=== PATIENT | male | born 1995 | race Caucasian/White ===

== ENCOUNTER 2018-04-19 22:40 | Emergency (ER) | payer BC ==
[2018-04-19] MEDS ORDERED: Ondansetron 4 MG/2 ML SDV IVPUSH ONE (22:53)
--- NOTE | 2018-04-19 22:54 | EDM.PDOC ---
ED HPI GENERAL MEDICAL PROBLEM - General Chief Complaint: Gastrointestinal Problem Stated Complaint: [facility] Time Seen by Provider: 04/19/18 22:48 Source of Information: Reports: Patient, EMS History Limitations: Reports: No Limitations - History of Present Illness INITIAL COMMENTS - FREE TEXT/NARRATIVE: 22-year-old male who is usually quite healthy presents the ED simply not feeling well. He was standing in the workplace and started to feel faint dizzy lightheaded and associated nausea. He reports that he has not eaten all day. He does not drink water. He does drink soda pop and coffee. Denies any diarrhea or abdominal pain. Just feels lightheaded like he is going to pass out. Feels almost like he might be low on blood sugar. Bedside blood sugar done was 87 in the room. Onset: Today Onset Date: 04/19/18 Onset Time: 22:00 Duration: Minutes: Location: Reports: Generalized (Natasha sense of illness with nausea lightheadedness dizziness and feeling like he is going to faint.) Quality: Reports: Other Severity: Moderate (Cordelia faint) Improves with: Reports: None Worsens with: Reports: None Context: Denies: Activity, Exercise, Lifting, Sick Contact, Trauma, Other Associated Symptoms: Reports: Malaise, Nausea/Vomiting (Feels hungry), Other. Denies: No Other Symptoms, Confusion, Chest Pain, Cough, cough w sputum, Diaphoresis, Fever/Chills, Headaches, Rash, Seizure, Shortness of Breath Treatments [employer]: Reports: Other (see below) (None.) - Related Data Allergies Allergy/AdvReac Type Severity Reaction Status Date / Time No Known Allergies Allergy Verified 01/09/14 20:17 Home Meds: Home Meds Acetaminophen/oxyCODONE [Percocet 325-5 MG] 1 each PO 6XDAY PRN #30 tab [Rx] Past Medical History - Past Health History Medical/Surgical History: Denies Medical/Surgical History Musculoskeletal History: Reports: Fracture Social & Family History - Tobacco Use Smoking Status *Q: Current Every Day Smoker Years of Tobacco use: 8 Packs/Tins Daily: 0.2 - Alcohol Use Days Per Week of Alcohol Use: 7 Number of Drinks Per Day: 2 Total Drinks Per Week: 14 - Recreational Drug Use Recreational Drug Use: No - Living Situation & Occupation Living situation: Reports: Single Occupation: Employed ED ROS GENERAL - Review of Systems Review Of Systems: See Below Constitutional: Reports: Malaise, Weakness, Fatigue, Other. Denies: Fever, Chills HEENT: Reports: No Symptoms Respiratory: Reports: No Symptoms Cardiovascular: Reports: No Symptoms Endocrine: Reports: No Symptoms GI/Abdominal: Reports: No Symptoms : Reports: No Symptoms Musculoskeletal: Reports: No Symptoms Skin: Reports: No Symptoms Neurological: Reports: No Symptoms Psychiatric: Reports: No Symptoms Hematologic/Lymphatic: Reports: No Symptoms ED EXAM, GI/ABD - Physical Exam Exam: See Below Exam Limited By: No Limitations General Appearance: WD/WN, Moderate Distress (Mildly anxious. Even sitting he feels faint.) Eyes: Bilateral: Normal Appearance Throat/Mouth: Other Head: Atraumatic, Normocephalic Neck: Normal Inspection, Supple, Non-Tender, Full Range of Motion Respiratory/Chest: No Respiratory Distress, Lungs Clear, Normal Breath Sounds, No Accessory Muscle Use Cardiovascular: Normal Peripheral Pulses, Regular Rate, Rhythm, No Edema, No Gallop, No Murmur, No Rub, Other ( confirms sinus rhythm at 97/m) GI/Abdominal Exam: Normal Bowel Sounds, Soft, Non-Tender, No Organomegaly, No Abnormal Bruit, No Mass, Pelvis Stable, Other (No surgical scars) Back Exam: Normal Inspection, Full Range of Motion. No: CVA Tenderness (L), CVA Tenderness (R) Extremities: Normal Inspection, Normal Range of Motion, Non-Tender, No Pedal Edema Neurological: Alert, Oriented, CN II-XII Intact, Normal Cognition, Normal Gait Psychiatric: Anxious Skin Exam: Warm, Dry, Intact, No Rash, Pallor Course - Vital Signs Last Recorded V/S: Last Vital Signs Temp 36.7 C 04/19/18 22:42 Pulse 97 04/19/18 22:42 Resp 9 L 04/19/18 22:42 BP 130/78 04/19/18 22:42 Pulse Ox 98 04/19/18 22:42 - Orders/Labs/Meds Orders: Active Orders 24 hr Category Date Time Status CBC WITH MANUAL DIFF [HEME] Stat Lab 04/19/18 22:50 Results Dextrose 5%-Lactated Ringers 1,000 ml Med 04/19/18 23:00 Active IV ASDIRECTED Medication Orders Dextrose/Lactated Ringer's (Dextrose 5%-Lactated Ringers) 1,000 mls @ 999 mls/ hr IV ASDIRECTED PAULO Last Admin: 04/19/18 22:59 Dose: 999 mls/hr Labs: Laboratory Tests 04/19/18 04/19/18 04/19/18 Range/Units 22:49 22:50 22:50 WBC 12.40 H (4.23-9.07) K/mm3 RBC 5.03 (4.63-6.08) M/mm3 Hgb 15.4 (13.7-17.5) gm/L Hct 44.4 (40.1-51.0) % MCV 88.3 (79.0-92.2) fl MCH 30.6 (25.7-32.2) pg MCHC 34.7 (32.2-35.5) g/dl RDW Std Deviation 39.5 (35.1-43.9) fL Plt Count 267 (163-337) K/mm3 MPV 10.3 (9.4-12.3) fl Sodium 140 (136-145) mEq/L Potassium 3.5 (3.5-5.1) mEq/L Chloride 102 (98-107) mEq/L Carbon Dioxide 26 (21-32) mEq/L Anion Gap 15.5 H (5-15) BUN 14 (7-18) mg/dL Creatinine 1.1 (0.7-1.3) mg/dL Est Cr Clr Drug Dosing 112.94 mL/min Estimated GFR (MDRD) > 60 (>60) mL/min BUN/Creatinine Ratio 12.7 L (14-18) Glucose 98 (74-106) mg/dL POC Glucose 87 (70-105) mg/dL Calcium 9.0 (8.5-10.1) mg/dL Total Bilirubin 0.5 (0.2-1.0) mg/dL AST 18 (15-37) U/L ALT 31 (16-63) U/L Alkaline Phosphatase 98 (46-116) U/L C-Reactive Protein < 0.2 (<1.0) mg/dL Total Protein 7.5 (6.4-8.2) g/dl Albumin 4.3 (3.4-5.0) g/dl Globulin 3.2 gm/dL Albumin/Globulin Ratio 1.3 (1-2) Meds: Medications Generic Name Dose Route Start Last Admin Trade Name Herminio PRN Reason Stop Dose Admin Dextrose/Lactated Ringer's 1,000 mls @ 999 mls/hr 04/19/18 23:00 04/19/18 22: 59 Dextrose 5%-Lactated Ringers IV 999 mls/hr ASDIRECTED PAULO Administration Discontinued Medications Generic Name Dose Route Start Last Admin Trade Name Herminio PRN Reason Stop Dose Admin Ondansetron HCl 4 mg 04/19/18 22:53 04/19/18 22:57 Zofran IVPUSH 04/19/18 22:54 4 mg ONETIME ONE Administration - Radiology Interpretation Free Text/Narrative:: 22-year-old male presents to the ED with acute onset of feeling faint i.e. dizzy lightheaded and nauseated. He hasn't eaten all day today. He is in the workplace sitting when he developed his symptoms. His heart shows sinus rhythm at 97/m. He is feeling shaky and tremulous and acting almost hypoglycemic. Bedside blood sugar was 87. I suspect he is volume depleted and possibly mildly hypoglycemic. Plan D5 LR at open. Given Zofran 4 mg IV for nausea relief. - Re-Assessments/Exams Free Text/Narrative Re-Assessment/Exam: 04/20/18 00:02 patient is completed liter of D5 LR and is feeling much better.Labs revealed a mildly elevated white count at 12.40. Differential pending hemoglobin is 15.4 with hematocrit of 44.4. Sodium 140 with potassium 3.5. Chloride 12 with a bicarbonate 26. And a gap is normal at 15.5. The urine is 14 with creatinine 1.1. Glucose is 98. Calcium is 9.0. Liver function is normal. C-reactive protein is less than 0.2. Total protein 7.5 with an albumin fraction 4.3 all essentially normal. I will therefore discharge him home to use Zofran 4 mg sublingually every 6 hours when necessary for recurrence of nausea. Coming down the stomach flu. I believe it may be just because he hasn't been eating. He feels back to normal now. He will go get something to eat at this time. Will be given to excuse him from work today but he may return to work tomorrow. Departure - Departure Time of Disposition: 00:06 Disposition: Home, Self-Care 01 Condition: Fair Clinical Impression: Mild dehydration, Hypoglycemia - Discharge Information *PRESCRIPTION DRUG MONITORING PROGRAM REVIEWED*: Not Applicable *COPY OF PRESCRIPTION DRUG MONITORING REPORT IN PATIENT ANKUR: Not Applicable Forms: ED Department Discharge, ED Return to Work/School Form Additional Instructions: Evaluation the emergency room tonight in regards to development of illness while at work. Started to feel suddenly very nauseated lightheaded and dizzy. The exact cause of this is not clear. Nausea reflex could cause her heart rate to drop and her blood pressure drop which in turn causes lightheadedness and feeling of going to faint. Your symptoms resembled hypoglycemia or low blood sugar and this is possible since her abdomen had much to eat or drink today. Lab work showed mild dehydration but nothing seriously out of normal. Blood sugar in the ED was 87 which is low normal. You're treated with a liter of IV fluids right Ringer's lactate which does contain some sugar and he felt improved. You could possibly suggest still be developing early stomach flu as it 's been going around. He'll know within the next 12 hours as you continue to have nausea and vomiting. At this time you're cleared to return to work tomorrow. Norm. Suggest eating something before bed tonight - My Orders Last 24 Hours: My Active Orders 04/19/18 22:50 CBC WITH MANUAL DIFF [HEME] Stat 04/19/18 23:00 Dextrose 5%-Lactated Ringers 1,000 ml IV ASDIRECTED - Assessment/Plan Last 24 Hours: My Active Orders 04/19/18 22:50 CBC WITH MANUAL DIFF [HEME] Stat 04/19/18 23:00 Dextrose 5%-Lactated Ringers 1,000 ml IV ASDIRECTED
[2018-04-19] MEDS ORDERED: Dextrose 5%-Lactated Ringers 1,000 ML IV SCH (23:00)
== END 2018-04-20 00:15 | disposition home or self-care (01) ==
LOC: JD.ED 22:40
DX: E86.0 Dehydration (principal); E16.2 Hypoglycemia, unspecified; F17.210 Nicotine dependence, cigarettes, uncomplicated
CPT/HCPCS: 36415; 80053; 82962; 85007; 85027; 86140; 96361; 96374; 99284; J2405; J7042